=== PATIENT | male | born 2000 | race Caucasian/White ===

== ENCOUNTER 2021-02-25 07:37 | Inpatient (IN) ==
[2021-02-25 08:02] LABS: Basophils # (auto) 0.02 K/uL (0-0.2); Basophils % (auto) 0.2 %; Eosinophils % (auto) 1.8 %; Hematocrit (blood only) 42.9 % (42-52); Hemoglobin 14.9 g/dL (14.0-18.0); Immature Granulocytes # (auto) 0.02 K/uL (0.00-0.02); Immature Granulocytes % (auto) 0.2 %; Lymphocytes # (auto) 2.22 K/uL (1.2-3.4); Lymphocytes % (auto) 19.8 %; Mean Corpuscular Hemoglobin 31.6 pg (25-34); Mean Corpuscular Hgb Conc 34.7 g/dL (32-36); Mean Corpuscular Volume 91.1 fL (80-100); Mean Platelet Volume 9.9 fL (7.4-10.4); Monocytes # (auto) 1.14 K/uL (0.11-0.59); Monocytes % (auto) 10.2 %; Neutrophils # (auto) 7.63 K/uL (1.4-6.5); Neutrophils % (auto) 67.8 %; Platelet Count 289 K/uL (130-400); RDW Coefficient of Variation 12.5 % (11.5-14.5); RDW Standard Deviation 41.9 fL (36.4-46.3); Red Blood Count 4.71 M/uL (4.7-6.1); White Blood Count 11.23 K/uL (4.8-10.8)
[2021-02-25 08:22] LABS: Partial Thromboplastin Time 26.4 Seconds (21.0-31.0); Prothrombin Time 10.3 Seconds (9.0-12.0)
[2021-02-25 08:26] LABS: Alanine Aminotransferase 35 U/L (12-78); Albumin Level 3.3 gm/dl (3.4-5.0); Aspartate Aminotransferase 106 U/L (15-37); BUN Creatinine Ratio 10.1 (10-20); Blood Urea Nitrogen 9 mg/dl (7-18); C Reactive Protein 3.36 mg/dl (0-0.29); Calcium 9.1 mg/dl (8.5-10.1); Carbon Dioxide 24 mmol/L (21-32); Chloride 106 mmol/L (98-107); Est GFR (African American) 136.5 ml/min; Est GFR (Non-African American) 117.8 ml/min; Glucose 106 mg/dl (70-99); Lipase 99 U/L (73-393); Potassium 3.8 mmol/L (3.5-5.1); Sodium 139 mmol/L (136-145)
--- NOTE | 2021-02-25 08:44 | XRay Report ---
XR chest 1V portable HISTORY: Atypical Chest Pain COMPARISON: None. FINDINGS: The lungs are clear. Cardiac silhouette is normal in size. No pleural effusions. No pneumot horax. IMPRESSION: No acute process. ACT 112: Negative or not required by law. Electronically signed by: Lupillo Beasley M.D. 02/25/2021 8:43 AM
--- NOTE | 2021-02-25 08:55 | Electrocardiogram Report ---
Test Reason : Blood Pressure : / mmHG Vent. Rate : 057 BPM Atrial Rate : 057 BPM P-R Int : 128 ms QRS Dur : 090 ms QT Int : 378 ms P-R-T Axes : 006 058 063 degrees QTc Int : 367 ms Sinus bradycardia Repolarization variant vs. pericarditis, clinical correlation necessary Abnormal ECG No previous ECGs available Confirmed by Scar Gorman [id number] on 02/25/2021 8:54:49 AM Referred By: REFERRED SELF Confirmed By:Scar Gorman
[2021-02-25 08:56] LABS: Albumin Globulin Ratio 0.8 (0.9-2); Alkaline Phosphatase 68 U/L (45-117); Bilirubin,Total 0.6 mg/dl (0.2-1); Creatine Kinase 693 U/L (39-308); Creatine Kinase MB 44.6 ng/ml (0.5-3.6); Globulin 4.3 gm/dl (2.5-4.0); Total Protein 7.6 gm/dl (6.4-8.2)
[2021-02-25 08:57] LABS: Procalcitonin < 0.05 ng/ml (0-0.5)
--- NOTE | 2021-02-25 08:58 | Emergency Department Note ---
Impression & Plan Myocarditis, Chest pain, Pericarditis, Abnormal EKG ED Provider Note NAME: DAYANA SU AGE: 20 SEX: M : 2000 ARRIVES VIA: Ambulance INFORMANT: Patient, ED PROVIDER(S): Chavo Meraz DO CHIEF COMPLAINT: Chest pain HPI: The patient is a 20-year-old male who presented to the emergency department for an evaluation of chest pain. The patient describes anterior substernal chest pain which began approximately 2 days ago. He states the pain is intermittent. He does notice the pain mostly at night especially when he is lying flat. He denies having any fever. He denies having any cough or difficulty breathing. He states he did have a viral illness a few weeks ago but he just had body aches. He was never seen for that and had no specific diagnosis. He has never had similar symptoms in the past. Has been trying [id number] medication with only minimal relief. The patient called 911 this morning because his pain was significantly worsened. The patient is vaccinated against COVID-19. He received the [place] vaccination prior to starting at [facility] for the fall session. ROS: See above HPI for pertinent positives & negatives. A total of 10 systems reviewed and were otherwise negative. PAST MEDICAL HISTORY: See Below PAST SURGICAL HISTORY: See Below FAMILY HISTORY: See Below SOCIAL HISTORY: See Below HOME MEDICATIONS: See Below ALLERGIES: See Below VITALS: See Below PHYSICAL EXAMINATION: GENERAL: Patient is awake alert in no acute distress patient is resting c omfortably and showing no signs of anxiety EYES: The conjunctivae are clear. The pupils are round and reactive. EARS, NOSE, MOUTH AND THROAT: The nose is without any evidence of any deformity. NECK: The neck is nontender and supple. RESPIRATORY: Normal respiratory effort is noted there is no evidence of wheezing rhonchi or rales CARDIOVASCULAR: Regular rate and rhythm noted there no murmurs rubs or gallops normal S1 normal S2. GASTROINTESTINAL: The abdomen is soft. Abdomen is nontender. MUSCULOSKELETAL/EXTREMITIES: There is no evidence of gross deformity full range of motion is noted in the hips and shoulders. SKIN: There is no obvious evidence of any rash. There are no petechiae, pallor or cyanosis noted. NEUROLOGIC: Patient is awake alert and oriented x3 MEDICAL DECISION MAKING: The patient is a 20-year-old male who presented to the emergency department for an evaluation of chest pain. The patient's initial EKG showed abnormalities including ST segment elevation which could be consistent with a STEMI. The patient's history as well as physical exam appear to be more consistent with pericarditis. His pain was very positional in nature. I discussed the patient's laboratory and radiographic studies with him. He was found to have an elevation in his cardiac biomarkers. Likely this represents pericarditis with myocarditis. I discussed the patient's condition with the on-call [facility] form setter steel pan forms. They did recommend an echocardiogram. I discussed this case with the on-call [facility] hospitalist. They will evaluate the patient in the emergency department for further management and disposition. Triage Nursing notes reviewed. Prior medical records reviewed Vital Signs: reviewed and remarkable for bradycardia. Differential diagnosis: Cardiac ischemia, aortic dissection, pulmonary embolism, pneumothorax, pneumoni a, pericarditis, myocarditis, esophageal rupture, GERD, cholecystitis, pancreatitis, musculoskeletal, as well as other pathologies. ER treatment provided: See below Diagnostics interpreted by me: ECG: EKG was obtained in the emergency department. My interpretation is sinus bradycardia 57 bpm. There is no ectopy. Inferior and low lateral ST segment elevations were noted. There was some depression of the ST segments in V1 and V2. No previous tracing was available. Cardiac Monitoring: An order was placed for continuous cardiac monitoring. The monitor shows a rate of 56 bpm with sinus bradycardia. Laboratory studies: As stated above and show below. Imaging studies: See below Consultation(s): I discussed this case with Dr. Donaldson who is on-call for the [facility] hospitalist group. They will evaluate the patient in the emergency department. I discussed this case with Dr. Gorman who is on-call for [facility] cardiology. He does recommend an echocardiogram. He will follow along with the patient in consultation. Past Med/Surg History Medical History GERD (gastroesophageal reflux disease) Surgical History History of ankle surgery History of wisdom tooth extraction Family History Father Hypertension Social History Smoking Status: Current every day smoker Tobacco Type: E-cigarettes / Vaping Second Hand Exposure: No; Do You Dip or Chew Tobacco: No; Tobacco Cessation Education Requested by Patient: No Hx Alcohol Use: Yes Alcohol type: beer Alcohol Intake Frequency: 2-3 x/Week Hx Substance Use: No Preferred Language: [place] Islander Communication Ability: Effective Line Cook Required: No Beliefs That Will Affect Care: None Current Living Situation: Other Current Living Situation Comment: Apartment with 2 roommates Other Information That Helps Us Care for You: No Feels Safe at Home: Yes Safety Concerns: Feels Safe At This Time Assistive Devices: None Allergies Allergies Allergy/AdvReac Type Severity Reaction Status Date / Time No Known Allergies Allergy Unverified 02/25/21 08:36 Home Meds Home Medications Medication Instructions Recorded Confirmed No Known Home Medications 02/25/21 02/25/21 Results & Data (ED) Vital Signs Vital Signs - 24 hr 02/25/21 09:00 02/25/21 09:52 02/25/21 10:00 Pulse Rate 62 91 H 77 Pulse Rate from SpO2 Sensor 55 L Respiratory Rate 17 18 16 Blood Pressure 128/69 Blood Pressure Mean 88 Pulse Oximetry 97 98 Home Medications Current Medication List: was personally reviewed by me Laboratory Data Attestation: I reviewed the patient's lab results. Result diagrams: 02/26/21 04:52 02/26/21 04:52 Lab Results 02/25/21 02/25/21 02/25/21 Range/Units 07:49 07:49 07:49 WBC 11.23 H (4.8-10.8) K/uL RBC 4.71 (4.7-6.1) M/uL Hgb 14.9 (14.0-18.0) g/dL Hct 42.9 (42-52) % MCV 91.1 (80-100) fL MCH 31.6 (25-34) pg MCHC 34.7 (32-36) g/dL RDW Std Deviation 41.9 (36.4-46.3) fL RDW Coeff of Marisol 12.5 (11.5-14.5) % Plt Count 289 (130-400) K/uL MPV 9.9 (7.4-10.4) fL Immature Gran % (Auto) 0.2 % Neut % (Auto) 67.8 % Lymph % (Auto) 19.8 % Hancock % (Auto) 10.2 % Eos % (Auto) 1.8 % Baso % (Auto) 0.2 % Neut # (Auto) 7.63 H (1.4-6.5) K/uL Lymph # (Auto) 2.22 (1.2-3.4) K/uL Hancock # (Auto) 1.14 H (0.11-0.59) K/uL Eos # (Auto) 0.20 (0-0.5) K/uL Baso # (Auto) 0.02 (0-0.2) K/uL Immature Gran # (Auto) 0.02 (0.00-0.02) K/uL ESR 27 H (0-15) mm/hr PT 10.3 (9.0-12.0) Seconds INR 1.0 (0.9-1.1) APTT 26.4 (21.0-31.0) Seconds PTT Ratio 1.0 Sodium (136-145) mmol/L Potassium (3.5-5.1) mmol/L Chloride (98-107) mmol/L Carbon Dioxide (21-32) mmol/L Anion Gap (3-11) BUN (7-18) mg/dl Creatinine (0.6-1.4) mg/dl Est Cr Clr Drug Dosing Est GFR ( Amer) ml/min Est GFR (Non-Af Amer) ml/min BUN/Creatinine Ratio (10-20) Glucose (70-99) mg/dl Calcium (8.5-10.1) mg/dl Total Bilirubin (0.2-1) mg/dl AST (15-37) U/L ALT (12-78) U/L Alkaline Phosphatase (45-117) U/L Total Creatine Kinase (39-308) U/L CK-MB (CK-2) (0.5-3.6) ng/ml CK/CKMB % Calc (0-3.0) Troponin I (0-0.045) ng/ml C-Reactive Protein (0-0.29) mg/dl Total Protein (6.4-8.2) gm/dl Albumin (3.4-5.0) gm/dl Globulin (2.5-4.0) gm/dl Albumin/Globulin Ratio (0.9-2) Lipase (73-393) U/L Procalcitonin (0-0.5) ng/ml TSH (0.300-4.500) uIu/ml COVID-19 Eval Order SARS-CoV-2 (PCR) (Negative) Monoscreen (Negative) 02/25/21 02/25/21 02/25/21 Range/Units 07:49 07:49 07:49 WBC (4.8-10.8) K/uL RBC (4.7-6.1) M/uL Hgb (14.0-18.0) g/dL Hct (42-52) % MCV (80-100) fL MCH (25-34) pg MCHC (32-36) g/dL RDW Std Deviation (36.4-46.3) fL RDW Coeff of Marisol (11.5-14.5) % Plt Count (130-400) K/uL MPV (7.4-10.4) fL Immature Gran % (Auto) % Neut % (Auto) % Lymph % (Auto) % Hancock % (Auto) % Eos % (Auto) % Baso % (Auto) % Neut # (Auto) (1.4-6.5) K/uL Lymph # (Auto) (1.2-3.4) K/uL Hancock # (Auto) (0.11-0.59) K/uL Eos # (Auto) (0-0.5) K/uL Baso # (Auto) (0-0.2) K/uL Immature Gran # (Auto) (0.00-0.02) K/uL ESR (0-15) mm/hr PT (9.0-12.0) Seconds INR (0.9-1.1) APTT (21.0-31.0) Seconds PTT Ratio Sodium 139 (136-145) mmol/L Potassium 3.8 (3.5-5.1) mmol/L Chloride 106 (98-107) mmol/L Carbon Dioxide 24 (21-32) mmol/L Anion Gap 9.0 (3-11) BUN 9 (7-18) mg/dl Creatinine 0.93 (0.6-1.4) mg/dl Est Cr Clr Drug Dosing Not Reportable Est GFR ( Amer) 136.5 ml/min Est GFR (Non-Af Amer) 117.8 ml/min BUN/Creatinine Ratio 10.1 (10-20) Glucose 106 H (70-99) mg/dl Calcium 9.1 (8.5-10.1) mg/dl Total Bilirubin 0.6 (0.2-1) mg/dl AST 106 H (15-37) U/L ALT 35 (12-78) U/L Alkaline Phosphatase 68 (45-117) U/L Total Creatine Kinase 693 H (39-308) U/L CK-MB (CK-2) 44.6 H (0.5-3.6) ng/ml CK/CKMB % Calc 6.4 H (0-3.0) Troponin I 17.000 H* (0-0.045) ng/ml C-Reactive Protein 3.36 H (0-0.29) mg/dl Total Protein 7.6 (6.4-8.2) gm/dl Albumin 3.3 L (3.4-5.0) gm/dl Globulin 4.3 H (2.5-4.0) gm/dl Albumin/Globulin Ratio 0.8 L (0.9-2) Lipase 99 (73-393) U/L Procalcitonin < 0.05 (0-0.5) ng/ml TSH 1.310 (0.300-4.500) uIu/ml COVID-19 Eval Order SARS-CoV-2 (PCR) (Negative) Monoscreen Negative (Negative) 02/25/21 02/25/21 Range/Units 08:30 08:30 WBC (4.8-10.8) K/uL RBC (4.7-6.1) M/uL Hgb (14.0-18.0) g/dL Hct (42-52) % MCV (80-100) fL MCH (25-34) pg MCHC (32-36) g/dL RDW Std Deviation (36.4-46.3) fL RDW Coeff of Marisol (11.5-14.5) % Plt Count (130-400) K/uL MPV (7.4-10.4) fL Immature Gran % (Auto) % Neut % (Auto) % Lymph % (Auto) % Hancock % (Auto) % Eos % (Auto) % Baso % (Auto) % Neut # (Auto) (1.4-6.5) K/uL Lymph # (Auto) (1.2-3.4) K/uL Hancock # (Auto) (0.11-0.59) K/uL Eos # (Auto) (0-0.5) K/uL Baso # (Auto) (0-0.2) K/uL Immature Gran # (Auto) (0.00-0.02) K/uL ESR (0-15) mm/hr PT (9.0-12.0) Seconds INR (0.9-1.1) APTT (21.0-31.0) Seconds PTT Ratio Sodium (136-145) mmol/L Potassium (3.5-5.1) mmol/L Chloride (98-107) mmol/L Carbon Dioxide (21-32) mmol/L Anion Gap (3-11) BUN (7-18) mg/dl Creatinine (0.6-1.4) mg/dl Est Cr Clr Drug Dosing Est GFR ( Amer) ml/min Est GFR (Non-Af Amer) ml/min BUN/Creatinine Ratio (10-20) Glucose (70-99) mg/dl Calcium (8.5-10.1) mg/dl Total Bilirubin (0.2-1) mg/dl AST (15-37) U/L ALT (12-78) U/L Alkaline Phosphatase (45-117) U/L Total Creatine Kinase (39-308) U/L CK-MB (CK-2) (0.5-3.6) ng/ml CK/CKMB % Calc (0-3.0) Troponin I (0-0.045) ng/ml C-Reactive Protein (0-0.29) mg/dl Total Protein (6.4-8.2) gm/dl Albumin (3.4-5.0) gm/dl Globulin (2.5-4.0) gm/dl Albumin/Globulin Ratio (0.9-2) Lipase (73-393) U/L Procalcitonin (0-0.5) ng/ml TSH (0.300-4.500) uIu/ml COVID-19 Eval Order Covid19 at [facility] SARS-CoV-2 (PCR) NEGATIVE (Negative) Monoscreen (Negative) Administered Medications Acetaminophen (Acetaminophen 325 Mg Tab) 650 mg PO Q4H PRN PRN Reason: Pain or Fever Stop: 03/27/21 13:41 Last Admin: 02/25/21 14:23 Dose: 650 mg Documented by: [id number] Aspirin (Aspirin 325 Mg Ectab) 325 mg PO TID CHASE Stop: 03/27/21 17:59 Last Admin: 02/25/21 19:15 Dose: 325 mg Documented by: [id number] Colchicine (Colchicine 0.6 Mg Tab) 0.6 mg PO BID CHASE Stop: 03/27/21 20:59 Last Admin: 02/25/21 22:15 Dose: 0.6 mg Documented by: [id number] Lactated Ringer's (Lr) 1,000 mls @ 125 mls/hr IV .Q8H [facility] Stop: 03/27/21 13:41 Last Admin: 02/26/21 06:01 Dose: 125 mls/hr Documented by: [id number] Infusion: 02/26/21 06:01 Dose: 125 mls/hr Documented by: [id number] Admin: 02/25/21 22:15 Dose: 125 mls/hr Documented by: [id number] Infusion: 02/25/21 21:52 Dose: 125 mls/hr Documented by: [id number] Admin: 02/25/21 13:52 Dose: 125 mls/hr Documented by: [id number] Metoprolol Tartrate (Metoprolol Tartrate 25 Mg Tab) 12.5 mg PO BID [facility] Stop: 03/27/21 18:04 Last Admin: 02/25/21 19:15 Dose: 12.5 mg Documented by: [id number] Pantoprazole Sodium (Pantoprazole 40 Mg Tab) 40 mg PO BID [facility] Stop: 03/27/21 20:59 Last Admin: 02/25/21 22:15 Dose: 40 mg Documented by: [id number] Imaging Data Radiologist's Impression: Chest X-Ray 02/25/21 07:43 XR chest 1V portable HISTORY: Atypical Chest Pain COMPARISON: None. FINDINGS: The lungs are clear. Cardiac silhouette is normal in size. No pleural effusions. No pneumothorax. IMPRESSION: No acute process. ACT 112: Negative or not required by law. Electronically signed by: Lupillo Beasley M.D. 02/25/2021 8:43 AM Discharge Plan Visit Data Patient Disposition: Being Evaluated by Hospitalist Discharge Instructions Interventions: ED Discharge Assessment Last Done: 02/25/21 13:30 Discharge Problem: Myocarditis Qualifiers: Myocarditis type: unspecified Chronicity: acute Qualified Code(s): I40.9 - Acute myocarditis, unspecified Chest pain Qualifiers: Chest pain type: unspecified Qualified Code(s): R07.9 - Chest pain, unspecified Pericarditis Qualifiers: Pericarditis type: unspecified type Chronicity: acute Qualified Code(s): I30.9 - Acute pericarditis, unspecified
[2021-02-25 09:59] LABS: Monotest Negative (Negative)
--- NOTE | 2021-02-25 10:14 | History & Physical Report ---
Date of Service February 25, 2021 Assessment & Plan (1) Myocarditis: Plan: Presents with severe chest pain clinically consistent with pericarditis in the setting of recent viral illness about 2 weeks prior. No evidence of heart failure on examination Troponin was 17 on arrival, CK elevated in the 600s with elevated CK-MB, AST also elevated, with mild leukocytosis, Elevated ESR 27, as well as ECG changes consistent with pericarditis Bureau screen and Covid-19 test negative here He is at least 2 months out from his Covid vaccine, however so most likely not related to his current myocarditis -Admit to PCU for telemetry monitoring for arrhythmia -Check echocardiogram to check structure and function -Consult cardiology for further recommendations -IV Toradol as needed for pain for now, but will likely need to add on colchicine and p.o. NSAIDs for discharge -Check TSH -Daily ECG -Trend serial troponin -Follow CBC and CMP, magnesium in the morning, replace electrolytes as needed -Start gentle IV fluids for mild rhabdo (2) Abnormal EKG: Plan: As above secondary to myopericarditis (3) GERD (gastroesophageal reflux disease): Plan: Takes PPI as needed at home but has not needed in over a year (4) Elevated troponin: Plan: As above, secondary to myopericarditis (5) Elevated CK: Plan: Mildly elevated in the 600s, likely related to recent viral illness and myocarditis Start LR at 125 mL's per hour Follow CK in the morning (6) Transaminitis: Plan: AST mildly elevated 106, likely related to mild rhabdomyolysis and viral syndrome Start LR as above Follow LFTs in morning (7) Leukocytosis: Plan: Mild at 11, likely related to myocarditis Follow CBC Plan: DVT prophylaxis-SCDs Disposition-admit to PCU History of Present Illness Chief Complaint: Chest pain Primary Care Provider: [facility] This patient is a 20-year-old healthy 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 He reports the pain is an 8 out of 10 at worst and is currently a 2 out of 10 after he took ibuprofen this morning. The pain is worse when he lies flat and better when he sits up. He has had sweats the last 2 days as well. No documented fevers. He denies any shortness of breath. He feels an occasional palpitation in his chest, but denies presyncope, lightheadedness, or syncope. He has never had anything like this before. He reports about 2 weeks ago he did have a viral syndrome with diffuse body aches, some swollen lymph nodes in his neck, and possibly fever. He did not have any cough or cold symptoms at that time and he recovered after a couple of days. He had a Covid vaccine series in December 2020. In the ER, he was found to have a troponin of 17, a mild leukocytosis with WBC count of 11, and ESR elevated at 27, AST elevated at 106, CK elevated at 693, and a negative procalcitonin. His Covid-19 test and mono screen were both negative. His ECG was abnormal which showed sinus bradycardia with a rate of 57, subtle ST elevation in all leads except some ST depression in V1 and V2, no ectopy, with no previous ECG to compare to He will be admitted for further work-up for [place]-myocarditis. Allergies Allergy/AdvReac Type Severity Reaction Status Date / Time No Known Allergies Allergy Unverified 02/25/21 08:36 Home Medications Medication Instructions Recorded Confirmed Type No Known Home Medications 02/25/21 02/25/21 History Past Med/Surg History Medical History GERD (gastroesophageal reflux disease) Surgical History History of ankle surgery History of wisdom tooth extraction Family History Father Hypertension Social History Smoking Status: Current every day smoker Tobacco Type: E-cigarettes / Vaping Hx Alcohol Use: Yes Alcohol Intake Frequency: 2-3 x/Week Hx Substance Use: No Feels Safe at Home: Yes Review of Systems Review of Systems: All systems reviewed & are unremarkable except as noted in HPI & below no headaches or vision changes, no sore throat, no sinus congestion, no shortness of breath or cough, no abdominal pain, no nausea or vomiting, no changes in bowel or bladder habits, no rashes or joint pains Has chronic issues with cerumen impaction Physical Exam Constitutional: WD/WN, vitals as above Eyes: PERRL, conjunctivae normal, anicteric sclerae ENMT: external ear and nose normal, oropharynx normal Ears: + unable to visualize TM (Due to bilateral cerumen impaction) Neck: trachea midline, no thyromegaly Respiratory: normal respiratory effort, lungs clear to auscultation Cardiovascular: RRR, no murmur, no edema Chest (Breasts): Chest: normal inspection of chest Gastrointestinal (Abdomen): normal bowel sounds, soft, nontender, no hepatosplenomegaly Musculoskeletal: Extremities: extremities normal to inspection; no cyanosis and no clubbing Skin: no rashes, warm and dry Neurologic: moves all extremities and awake; no focal motor deficits Psychiatric: A+Ox3, euthymic affect Lymphatic: no lymphedema and no cervical lymphadenopathy Results & Data Results & Data ([facility]) Vital Signs (Past 12 Hours) Vital Signs Temp Pulse Pulse Resp BP BP Pulse Ox 02/25/21 09:52 91 H 18 128/69 98 02/25/21 09:00 62 17 97 02/25/21 08:00 56 L 14 126/74 100 02/25/21 07:51 62 19 100 02/25/21 07:40 37.3 C 57 L 25 H 137/80 98 02/25/21 07:33 98 02/25/21 07:30 37.3 C 57 L 25 H 137/80 98 Laboratory Results 02/25/21 02/25/21 02/25/21 Range/Units 08:30 08:30 07:49 WBC (4.8-10.8) K/uL RBC (4.7-6.1) M/uL Hgb (14.0-18.0) g/dL Hct (42-52) % MCV (80-100) fL MCH (25-34) pg MCHC (32-36) g/dL RDW Std Deviation (36.4-46.3) fL RDW Coeff of Marisol (11.5-14.5) % Plt Count (130-400) K/uL MPV (7.4-10.4) fL Immature Gran % (Auto) % Neut % (Auto) % Lymph % (Auto) % Bureau % (Auto) % Eos % (Auto) % Baso % (Auto) % Neut # (Auto) (1.4-6.5) K/uL Lymph # (Auto) (1.2-3.4) K/uL Bureau # (Auto) (0.11-0.59) K/uL Eos # (Auto) (0-0.5) K/uL Baso # (Auto) (0-0.2) K/uL Immature Gran # (Auto) (0.00-0.02) K/uL ESR (0-15) mm/hr PT (9.0-12.0) Seconds INR (0.9-1.1) APTT (21.0-31.0) Seconds PTT Ratio Sodium (136-145) mmol/L Potassium (3.5-5.1) mmol/L Chloride (98-107) mmol/L Carbon Dioxide (21-32) mmol/L Anion Gap (3-11) BUN (7-18) mg/dl Creatinine (0.6-1.4) mg/dl Est Cr Clr Drug Dosing Est GFR ( Amer) ml/min Est GFR (Non-Af Amer) ml/min BUN/Creatinine Ratio (10-20) Glucose (70-99) mg/dl Calcium (8.5-10.1) mg/dl Total Bilirubin (0.2-1) mg/dl AST (15-37) U/L ALT (12-78) U/L Alkaline Phosphatase (45-117) U/L Total Creatine Kinase (39-308) U/L CK-MB (CK-2) (0.5-3.6) ng/ml CK/CKMB % Calc (0-3.0) Troponin I (0-0.045) ng/ml C-Reactive Protein (0-0.29) mg/dl Total Protein (6.4-8.2) gm/dl Albumin (3.4-5.0) gm/dl Globulin (2.5-4.0) gm/dl Albumin/Globulin Ratio (0.9-2) Lipase (73-393) U/L Procalcitonin < 0.05 (0-0.5) ng/ml COVID-19 Eval Order Covid19 at [facility] SARS-CoV-2 (PCR) NEGATIVE (Negative) Monoscreen Negative (Negative) 02/25/21 02/25/21 02/25/21 Range/Units 07:49 07:49 07:49 WBC (4.8-10.8) K/uL RBC (4.7-6.1) M/uL Hgb (14.0-18.0) g/dL Hct (42-52) % MCV (80-100) fL MCH (25-34) pg MCHC (32-36) g/dL RDW Std Deviation (36.4-46.3) fL RDW Coeff of Marisol (11.5-14.5) % Plt Count (130-400) K/uL MPV (7.4-10.4) fL Immature Gran % (Auto) % Neut % (Auto) % Lymph % (Auto) % Bureau % (Auto) % Eos % (Auto) % Baso % (Auto) % Neut # (Auto) (1.4-6.5) K/uL Lymph # (Auto) (1.2-3.4) K/uL Bureau # (Auto) (0.11-0.59) K/uL Eos # (Auto) (0-0.5) K/uL Baso # (Auto) (0-0.2) K/uL Immature Gran # (Auto) (0.00-0.02) K/uL ESR 27 H (0-15) mm/hr PT 10.3 (9.0-12.0) Seconds INR 1.0 (0.9-1.1) APTT 26.4 (21.0-31.0) Seconds PTT Ratio 1.0 Sodium 139 (136-145) mmol/L Potassium 3.8 (3.5-5.1) mmol/L Chloride 106 (98-107) mmol/L Carbon Dioxide 24 (21-32) mmol/L Anion Gap 9.0 (3-11) BUN 9 (7-18) mg/dl Creatinine 0.93 (0.6-1.4) mg/dl Est Cr Clr Drug Dosing Not Reportable Est GFR ( Amer) 136.5 ml/min Est GFR (Non-Af Amer) 117.8 ml/min BUN/Creatinine Ratio 10.1 (10-20) Glucose 106 H (70-99) mg/dl Calcium 9.1 (8.5-10.1) mg/dl Total Bilirubin 0.6 (0.2-1) mg/dl AST 106 H (15-37) U/L ALT 35 (12-78) U/L Alkaline Phosphatase 68 (45-117) U/L Total Creatine Kinase 693 H (39-308) U/L CK-MB (CK-2) 44.6 H (0.5-3.6) ng/ml CK/CKMB % Calc 6.4 H (0-3.0) Troponin I 17.000 H* (0-0.045) ng/ml C-Reactive Protein 3.36 H (0-0.29) mg/dl Total Protein 7.6 (6.4-8.2) gm/dl Albumin 3.3 L (3.4-5.0) gm/dl Globulin 4.3 H (2.5-4.0) gm/dl Albumin/Globulin Ratio 0.8 L (0.9-2) Lipase 99 (73-393) U/L Procalcitonin (0-0.5) ng/ml COVID-19 Eval Order SARS-CoV-2 (PCR) (Negative) Monoscreen (Negative) 02/25/21 Range/Units 07:49 WBC 11.23 H (4.8-10.8) K/uL RBC 4.71 (4.7-6.1) M/uL Hgb 14.9 (14.0-18.0) g/dL Hct 42.9 (42-52) % MCV 91.1 (80-100) fL MCH 31.6 (25-34) pg MCHC 34.7 (32-36) g/dL RDW Std Deviation 41.9 (36.4-46.3) fL RDW Coeff of Marisol 12.5 (11.5-14.5) % Plt Count 289 (130-400) K/uL MPV 9.9 (7.4-10.4) fL Immature Gran % (Auto) 0.2 % Neut % (Auto) 67.8 % Lymph % (Auto) 19.8 % Bureau % (Auto) 10.2 % Eos % (Auto) 1.8 % Baso % (Auto) 0.2 % Neut # (Auto) 7.63 H (1.4-6.5) K/uL Lymph # (Auto) 2.22 (1.2-3.4) K/uL Bureau # (Auto) 1.14 H (0.11-0.59) K/uL Eos # (Auto) 0.20 (0-0.5) K/uL Baso # (Auto) 0.02 (0-0.2) K/uL Immature Gran # (Auto) 0.02 (0.00-0.02) K/uL ESR (0-15) mm/hr PT (9.0-12.0) Seconds INR (0.9-1.1) APTT (21.0-31.0) Seconds PTT Ratio Sodium (136-145) mmol/L Potassium (3.5-5.1) mmol/L Chloride (98-107) mmol/L Carbon Dioxide (21-32) mmol/L Anion Gap (3-11) BUN (7-18) mg/dl Creatinine (0.6-1.4) mg/dl Est Cr Clr Drug Dosing Est GFR ( Amer) ml/min Est GFR (Non-Af Amer) ml/min BUN/Creatinine Ratio (10-20) Glucose (70-99) mg/dl Calcium (8.5-10.1) mg/dl Total Bilirubin (0.2-1) mg/dl AST (15-37) U/L ALT (12-78) U/L Alkaline Phosphatase (45-117) U/L Total Creatine Kinase (39-308) U/L CK-MB (CK-2) (0.5-3.6) ng/ml CK/CKMB % Calc (0-3.0) Troponin I (0-0.045) ng/ml C-Reactive Protein (0-0.29) mg/dl Total Protein (6.4-8.2) gm/dl Albumin (3.4-5.0) gm/dl Globulin (2.5-4.0) gm/dl Albumin/Globulin Ratio (0.9-2) Lipase (73-393) U/L Procalcitonin (0-0.5) ng/ml COVID-19 Eval Order SARS-CoV-2 (PCR) (Negative) Monoscreen (Negative) Diagnostic Findings Chest X-Ray 02/25/21 07:43 XR chest 1V portable HISTORY: Atypical Chest Pain COMPARISON: None. FINDINGS: The lungs are clear. Cardiac silhouette is normal in size. No pleural effusions. No pneumothorax. IMPRESSION: No acute process. ACT 112: Negative or not required by law. Electronically signed by: Lupillo Beasley M.D. 02/25/2021 8:43 AM Code Status & VTE Plan Code Status Full code VTE Prophylaxis Plan VTE Prophylaxis will be ordered: Yes PG Care Time/CCT Total # of Minutes Spent Total Time Spent with Patient: Total time spent is greater than 50% in coordination of care (as documented) at patient's floor/unit and/or counseling patient: Coding Level of Care Code 55991 Initial Inpt Care Lvl 3 Diagnoses GERD (gastroesophageal reflux disease) K21.9 Myocarditis I40.9 Chronicity: acute Myocarditis type: unspecified Abnormal EKG R94.31 Elevated troponin R77.8 Elevated CK R74.8 Transaminitis R74.01 Leukocytosis D72.829 (1) Myocarditis Chronicity: acute Myocarditis type: unspecified Qualified Code(s): I40.9 - Acute myocarditis, unspecified
--- NOTE | 2021-02-25 11:56 | Communication Note ---
Date of Service: February 25, 2021 I personally examined and provided care to this patient under the supervision of Dr. Meraz. Resident Activity Tracking Resident Involvement: Resident Care Provided Care Provided: Pediatric Care ED
[2021-02-25] MEDS ORDERED: ONDANSETRON INJ 2 MG/ML 2 ML VIAL IV PRN (13:42)
[2021-02-25] MEDS ORDERED: MoRPHine SULFATE 2 MG/ML CARP IV PRN (13:42)
[2021-02-25] MEDS ORDERED: ACETAMINOPHEN 325 MG TAB PO PRN (13:42)
[2021-02-25] MEDS ORDERED: KETOROLAC TROMETHAMINE 15 MG/ML VIAL IV PRN (13:42)
[2021-02-25] MEDS: LACTATED RINGER'S 1,000 ML IV SCH ×2 (13:52→22:15)
--- NOTE | 2021-02-25 14:00 | XCELERA ---
[id number]
--- NOTE | 2021-02-25 17:30 | Cardiology Consultation ---
Date of Consultation February 25, 2021 Assessment & Plan (1) Acute myopericarditis: 20-year-old healthy man presents with positional chest pain 2 weeks after a viral syndrome. Along the spectrum from pericarditis to myopericarditis to myocarditis, his initial clinical scenario is most consistent with acute myopericarditis. His echocardiogram shows low normal systolic function, which in an athletic individual is an expected finding. However, should subsequent echocardiograms showed a decline in systolic function, the possibility of a primary myocarditis would rise. At this point, would treat the pericarditis component with colchicine 0.6 mg BID for 3 months. Would avoid NSAIDs at this point given possibility of myocarditis (a theoretical concern). Would start aspirin 325 mg 3 times daily, could increase to 650 mg 3 times daily if his chest pain returns. Check limited follow-up echocardiogram in the morning to reassess LV function. (2) PVCs (premature ventricular contractions): Initiate low-dose beta-clara (metoprolol 12.5 mg twice daily) for ventricular irritability with PVCs on monitor. History of Present Illness Reason for Consultation: Myopericarditis Requesting Physician: Adali Donaldson MD Attending Physician: Adali Donaldson MD History of Present Illness 20-year-old healthy man who noted abrupt onset of positional chest pain yesterday morning, more severe this morning prompting him to call an ambulance, initial evaluation suggest mild pericarditis. Patient received Covid vaccine December 2020. He noted a viral syndrome 2 weeks ago with myalgias and lymphadenopathy as well as possible fever, no cough or cold symptoms. He felt well since that time and regularly works out in the gym. As noted, he had moderate intensity positional chest pain yesterday, worse when lying down. This morning the pain was 8/10 intensity prompting ER evaluation. At the time of my evaluation later in the day, he was no longer experiencing any chest discomfort sitting up or lying down. He has noted subjective palpitations which are bothersome, nonsustained and no presyncope or syncope. At baseline, he is physically active and lifts weights regularly and does some treadmill aerobic exercise as well. No significant medical problems. Aside from occasional palpitations, no somatic complaints at the time of my evaluation. Allergies Allergy/AdvReac Type Severity Reaction Status Date / Time No Known Allergies Allergy Unverified 02/25/21 08:36 Home Medications Medication Instructions Recorded Confirmed Type No Known Home Medications 02/25/21 02/25/21 History Patient History Medical History GERD (gastroesophageal reflux disease) Surgical History History of ankle surgery History of wisdom tooth extraction Family History Father Hypertension Social History Smoking Status: Current every day smoker Tobacco Type: E-cigarettes / Vaping Second Hand Exposure: No; Do You Dip or Chew Tobacco: No; Tobacco Cessation Education Requested by Patient: No Hx Alcohol Use: Yes Alcohol type: beer Alcohol Intake Frequency: 2-3 x/Week Hx Substance Use: No Preferred Language: Indonesian Communication Ability: Effective Quality Control Tester Required: No Beliefs That Will Affect Care: None Current Living Situation: Other Current Living Situation Comment: Apartment with 2 roommates Other Information That Helps Us Care for You: No Feels Safe at Home: Yes Safety Concerns: Feels Safe At This Time Assistive Devices: None Physical Exam Physical Exam: Athletic habitus in adult white male in no distress. Normotensive. Pulse 64 bpm and regular with rare ectopy. Skin: no rash, ecchymoses or generalized lesions. HEENT: unremarkable. Neck: no JVD or carotid bruits. Lungs: clear bilaterally Cardiac: regular rhythm, no murmur or gallop. No rub. Abdomen: benign. Extremities: no edema, pulses intact. Neurologic: normal affect and conversation, nonfocal. Results & Data ([facility]) Laboratory Results WBC 11.23, hemoglobin normal, platelet count normal. Coagulation studies normal. Normal electrolytes, BUN 9, creatinine 0.93. AST elevated at 106, ALT normal at 35. Troponin 17 rising to 23. CK 693 with positive MB fraction. COVID-19 and Monospot negative. TSH normal. Procalcitonin undetectable. Diagnostic Findings Chest x-ray unremarkable. ECG showed sinus rhythm at [address] elevations consistent with pericarditis. No prior ECG. Echocardiogram showed EF 50 to 55% with borderline global hypokinesis, normal right ventricular size and function with normal right ventricular systolic pressure. No pericardial effusion. Telemetry showed PVCs correlating with his palpitations, infrequent and noncomplex. PG Care Time/CCT Total # of Minutes Spent Total Time Spent with Patient: Total time spent is greater than 50% in coordination of care (as documented) at patient's floor/unit and/or counseling patient: Coding Level of Care Code 82971 Inpt Consult Level 4 Diagnoses Acute myopericarditis I30.9 PVCs (premature ventricular contractions) I49.3
[2021-02-25] MEDS: ASPIRIN 325 MG ECTAB PO SCH (19:15)
[2021-02-25] MEDS: METOPROLOL TARTRATE 25 MG TAB PO SCH (19:15)
[2021-02-25 21:29] LABS: Lyme Ab IgG w/WB Rflx Negative (Negative); Lyme Ab IgM w/WB Rflx Negative (Negative)
[2021-02-25] MEDS: COLCHICINE 0.6 MG TAB PO SCH (22:15)
[2021-02-25] MEDS: PANTOprazole 40 MG TAB PO SCH (22:15)
[2021-02-26 05:14] LABS: Basophils # (auto) 0.02 K/uL (0-0.2); Basophils % (auto) 0.2 %; Eosinophils # (auto) 0.18 K/uL (0-0.5); Eosinophils % (auto) 1.5 %; Hematocrit (blood only) 40.2 % (42-52); Hemoglobin 14.1 g/dL (14.0-18.0); Immature Granulocytes # (auto) 0.03 K/uL (0.00-0.02); Immature Granulocytes % (auto) 0.3 %; Lymphocytes # (auto) 2.86 K/uL (1.2-3.4); Lymphocytes % (auto) 24.1 %; Mean Corpuscular Hgb Conc 35.1 g/dL (32-36); Mean Corpuscular Volume 91.4 fL (80-100); Mean Platelet Volume 9.9 fL (7.4-10.4); Monocytes # (auto) 1.24 K/uL (0.11-0.59); Monocytes % (auto) 10.5 %; Neutrophils # (auto) 7.52 K/uL (1.4-6.5); Neutrophils % (auto) 63.4 %; Platelet Count 273 K/uL (130-400); RDW Coefficient of Variation 12.3 % (11.5-14.5); RDW Standard Deviation 41.3 fL (36.4-46.3); White Blood Count 11.85 K/uL (4.8-10.8)
[2021-02-26 05:44] LABS: Albumin Level 2.9 gm/dl (3.4-5.0); BUN Creatinine Ratio 9.6 (10-20); Calcium 9.4 mg/dl (8.5-10.1); Creatinine Clr Calc Pharmacy 151.4 ml/min; Est GFR (African American) 136.5 ml/min; Est GFR (Non-African American) 117.8 ml/min
[2021-02-26 05:47] LABS: Albumin Globulin Ratio 0.7 (0.9-2); Bilirubin,Total 0.5 mg/dl (0.2-1); Total Protein 6.9 gm/dl (6.4-8.2)
[2021-02-26] MEDS: LACTATED RINGER'S 1,000 ML IV SCH (06:01)
--- NOTE | 2021-02-26 07:44 | XCELERA ---
[id number]
[2021-02-26] MEDS: COLCHICINE 0.6 MG TAB PO SCH (08:30)
[2021-02-26] MEDS: ASPIRIN 325 MG ECTAB PO SCH ×2 (08:31→14:18)
[2021-02-26] MEDS: PANTOprazole 40 MG TAB PO SCH (08:31)
[2021-02-26] MEDS: METOPROLOL TARTRATE 25 MG TAB PO SCH (08:47)
--- NOTE | 2021-02-26 08:58 | Electrocardiogram Report ---
Test Reason : Blood Pressure : / mmHG Vent. Rate : 066 BPM Atrial Rate : 066 BPM P-R Int : 174 ms QRS Dur : 092 ms QT Int : 406 ms P-R-T Axes : 067 067 080 degrees QTc Int : 425 ms Normal sinus rhythm Acute pericarditis Abnormal ECG When compared with ECG of 25-FEB-2021 21:45, No significant change was found Confirmed by Scar Gorman ([id number]) on 02/26/2021 8:58:25 AM Referred By: REFERRED SELF Confirmed By:Scar Gorman
--- NOTE | 2021-02-26 08:58 | Electrocardiogram Report ---
Test Reason : Blood Pressure : / mmHG Vent. Rate : 074 BPM Atrial Rate : 074 BPM P-R Int : 158 ms QRS Dur : 088 ms QT Int : 374 ms P-R-T Axes : 066 065 078 degrees QTc Int : 415 ms Normal sinus rhythm Acute pericarditis Normal ECG When compared with ECG of 25-FEB-2021 21:00, No significant change was found Confirmed by Scar Gorman ([id number]) on 02/26/2021 8:57:58 AM Referred By: REFERRED SELF Confirmed By:Scar Gorman
--- NOTE | 2021-02-26 08:59 | Electrocardiogram Report ---
Test Reason : Blood Pressure : / mmHG Vent. Rate : 062 BPM Atrial Rate : 062 BPM P-R Int : 176 ms QRS Dur : 090 ms QT Int : 410 ms P-R-T Axes : 071 061 075 degrees QTc Int : 416 ms Normal sinus rhythm Acute pericarditis Abnormal ECG When compared with ECG of 26-FEB-2021 05:54, No significant change was found Confirmed by Scar Gorman ([id number]) on 02/26/2021 8:58:46 AM Referred By: REFERRED SELF Confirmed By:Scar Gorman
--- NOTE | 2021-02-26 09:00 | Electrocardiogram Report ---
Test Reason : Blood Pressure : / mmHG Vent. Rate : 064 BPM Atrial Rate : 064 BPM P-R Int : 162 ms QRS Dur : 090 ms QT Int : 384 ms P-R-T Axes : 074 065 077 degrees QTc Int : 396 ms Normal sinus rhythm Acute pericarditis Normal ECG When compared with ECG of 25-FEB-2021 07:40, No significant change was found Confirmed by Scar Gorman ([id number]) on 02/26/2021 8:59:58 AM Referred By: REFERRED SELF Confirmed By:Scar Gorman
[2021-02-26 13:01] LABS: Troponin I 20.8 ng/ml (0-0.045)
--- NOTE | 2021-02-26 13:14 | Cardiology Progress Note ---
Date of Service February 26, 2021 Assessment & Plan (1) Acute myopericarditis: Plan: Inflammatory myopericarditis process seems to have peaked (enzymes improving) and the patient is asymptomatic. Discharge on: Colchicine 0.6 mg BID for 3 months. Aspirin 325 mg 3 times daily with food (can increase to 650 mg 3 times daily if recurrent chest pain). Continue aspirin for 48 hours, then decrease to twice a day for 2 days, then once a day for 2 days, with increase in dosing if recurrent chest pain. Metoprolol 12.5 mg twice daily. Strict avoidance of heavy exertion. Light activity only, keep heart rate less than 100 bpm. Cardiology follow-up in 3 to 4 weeks to reassess. (2) PVCs (premature ventricular contractions): Plan: Resolved. Continue beta-clara. Admission and Anticipated Discharge Date Admission Date: February 25, 2021 Subjective Developed recurrent chest discomfort last evening, after receiving aspirin and colchicine this resolved completely and has not recurred today. He noted palpitations yesterday, but none today. Troponin increased mildly but is now declining. Echocardiogram was unchanged overnight. Telemetry shows sinus rhythm without ectopy currently. He was comfortable with no complaint at the time of my evaluation. Physical Exam Physical Exam: Athletic habitus in adult white male in no distress. Normotensive. Pulse 70 bpm and regular. Skin: no rash, ecchymoses or generalized lesions. HEENT: unremarkable. Neck: no JVD or carotid bruits. Lungs: clear bilaterally Cardiac: regular rhythm, no murmur or gallop. No rub. Abdomen: benign. Extremities: no edema, pulses intact. Neurologic: normal affect and conversation, nonfocal. Results & Data ([facility]) Vital Signs (Past 12 Hours) Vital Signs Temp Pulse Resp BP Pulse Ox 02/26/21 12:35 71 18 119/66 99 02/26/21 07:32 98.6 F 76 18 117/64 97 02/26/21 02:57 98.2 F 78 20 106/62 98 Laboratory Results Troponins 17 - 23 - 21- 20.8 CK 693 - 027 - 849 Diagnostic Findings Follow-up echocardiogram showed EF 50 to 55% with no regional wall motion normalities. No change compared with yesterday. PG Care Time/CCT Total # of Minutes Spent Total Time Spent with Patient: Total time spent is greater than 50% in coordination of care (as documented) at patient's floor/unit and/or counseling patient: Coding Level of Care Code 08872 Subseq Hosp Care Lvl 3 Diagnoses Acute myopericarditis I30.9 PVCs (premature ventricular contractions) I49.3
--- NOTE | 2021-02-26 13:18 | Discharge Summary ---
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 He reports the pain is an 8 out of 10 at worst and is currently a 2 out of 10 after he took ibuprofen this morning. The pain is worse when he lies flat and better when he sits up. He has had sweats the last 2 days as well. No documented fevers. He denies any shortness of breath. He feels an occasional palpitation in his chest, but denies presyncope, lightheadedness, or syncope. He has never had anything like this before. He reports about 2 weeks ago he did have a viral syndrome with diffuse body aches, some swollen lymph nodes in his neck, and possibly fever. He did not have any cough or cold symptoms at that time and he recovered after a couple of days. He had a Covid vaccine series in December 2020. In the ER, he was found to have a troponin of 17, a mild leukocytosis with WBC count of 11, and ESR elevated at 27, AST elevated at 106, CK elevated at 693, and a negative procalcitonin. His Covid-19 test and mono screen were both negative. His ECG was abnormal which showed sinus bradycardia with a rate of 57, subtle ST elevation in all leads except some ST depression in V1 and V2, no ectopy, with no previous ECG to compare to He will be admitted for further work-up for [place]-myocarditis. Principal Diagnosis Acute myopericarditis Discharge Exam Constitutional WD/WN, vitals as above Eyes PERRL, conjunctivae normal, anicteric sclerae ENMT external ear and nose normal, oropharynx normal Neck trachea midline, no thyromegaly Respiratory normal respiratory effort, lungs clear to auscultation Cardiovascular RRR, no murmur, no edema Chest (Breasts) Chest: normal inspection of chest Gastrointestinal (Abdomen) normal bowel sounds, soft, nontender, no hepatosplenomegaly Musculoskeletal Extremities: extremities normal to inspection; no cyanosis and no clubbing Skin no rashes, warm and dry Neurologic moves all extremities and awake; no focal motor deficits Psychiatric A+Ox3, euthymic affect Lymphatic no lymphedema and no cervical lymphadenopathy Discharge Data Allergies Allergy/AdvReac Type Severity Reaction Status Date / Time No Known Allergies Allergy Unverified 02/25/21 08:36 Consultations 02/25/21 09:05 Consult Cardiology Stat 02/25/21 09:23 Consult Cardiology Stat ED Decision to Admit Stat Ordered Studies Chest X-Ray 02/25/21 07:43 XR chest 1V portable HISTORY: Atypical Chest Pain COMPARISON: None. FINDINGS: The lungs are clear. Cardiac silhouette is normal in size. No pleural effusions. No pneumothorax. IMPRESSION: No acute process. ACT 112: Negative or not required by law. Electronically signed by: Lupillo Beasley M.D. 02/25/2021 8:43 AM Hospital Course (1) Myocarditis: Presents with severe chest pain clinically consistent with myopericarditis in the setting of recent viral illness about 2 weeks prior. No evidence of heart failure on examination Troponin was 17 on arrival and peaked at 23 CK elevated in the 600s with elevated CK-MB, AST also elevated, with mild leukocytosis, Elevated ESR 27, as well as ECG changes consistent with pericarditis [place] screen and Covid-19 test negative here Lyme titer negative He is at least 2 months out from his Covid vaccine, however, so most likely not related to his current myocarditis -He was admitted to PCU for telemetry monitoring for arrhythmia-he had only sinus rhythm on the monitor and his heart rate did not go above the 90s with ambulating the words prior to discharge -Echocardiogram initially showed low normal EF at 50-55% with borderline global hypokinesis of left ventricle, no pericardial effusion A repeat limited echocardiogram the next day was unchanged -Consult cardiology appreciated -He was treated with aspirin 325 mg p.o. 3 times daily and colchicine 0.6 mg p.o. twice daily and his pain was dramatically improved within 24 hours The aspirin is to be tapered down over the next several days and then use as needed for pain Colchicine is to be continued for 3 months Follow-up with cardiology as an outpatient in several weeks Stable for discharge to home (2) Abnormal EKG: As above secondary to myopericarditis (3) GERD (gastroesophageal reflux disease): Takes PPI as needed at home but has not needed in over a year Recommended taking PPI daily for the next 2 weeks given high-dose aspirin use (4) Elevated troponin: As above, secondary to myopericarditis (5) Elevated CK: Mildly elevated in the 600s, likely related to recent viral illness and myocarditis Was given LR at 125 mL's per hour Repeat CK the next day was down to 634 (6) Transaminitis: AST mildly elevated 106, likely related to mild rhabdomyolysis and viral syndrome Was given IV fluids and AST remained mildly elevated at 144 on discharge Follow-up as an outpatient (7) Leukocytosis: Mild at 11, likely related to myocarditis, stable on the day of discharge Follow CBC as an outpatient DVT prophylaxis-SCDs Disposition-admit to PCU Total Time Total Time Spent Total Time Spent (In Minutes): 45 minutes Total Time Includes: Examination of the Patient, Discharge Planning, Medication Reconciliation and Communication With Other Providers (Cardiology) Discharge Plan Discharge Items Patient Disposition: Home - Self-Care Reason For Visit: VAN-PERICARDITIS,CHEST PAIN Discharge Diagnosis: Acute van-pericarditis Condition on Discharge: Fair Activity: Per Instructions section Bathing: No limitations Sexual Activity: Wait until after follow-up appointment Exercise/Sports: Wait until after follow-up appointment Exercise Comment: Do not let heart rate get above 100 beats per minute Driving/Machine Use: No limitations Non-emergency contact: Primary Care Provider and Corporate Development Manager Call non-emergency contact if: you have any medication questions, your symptoms worsen, your pain is not controlled, your pain is worsening, your pain is unusual for you and your pain is concerning for you Follow-up/Referrals: Scar Gomran MD [Physician] - 03/19/21 1:30 pm (Please follow up within 3-4 weeks) [facility] [Primary Care Provider] - 03/12/21 2:40 pm () Diet: Regular Addtl Attending Provider Instructions: You were admitted for inflammation of the lining of the heart into the muscle of the heart-this is called myopericarditis. This was likely caused by a viral infection that you had 2 weeks prior to admission. It is very important that you not overexert yourself-do not let your heart rate go above 100. If you can get rides to classes so that you do not have to walk more than a light pace, that would be great. 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 You should not be exercising at all. You will be taking several medications for your heart. Please take aspirin 325 mg 3 times a day for the next 3 days and then decrease to twice a day for 3 days and then once a day for 1 day and then stop. If you have a return of pain as you taper down on the dose, you should restart the aspirin. You also be taking colchicine 0.6 mg by mouth twice a day for at least the next month until you see the accounts receivable manager. This medication can cause diarrhea. If the diarrhea is severe (greater than 5 times a day), you can take an antidiarrheal medication such as Imodium and let your accounts receivable manager know. You should take the omeprazole that you have at home once daily every day in the morning for the next 2 weeks. You will also be taking metoprolol 12.5 mg by mouth twice a day to keep your heart rate down and help protect you from abnormal heart rhythms and extra beats. You should avoid alcohol use at this time. It is very important also that you quit using e-cigarettes. Please follow-up with accounts receivable manager in 3 to 4 weeks. Pending Studies at Discharge: No Stand-Alone Forms: My [facility], Work/School Release, Smoking Cessation Medications and DC Order Prescriptions: New metoprolol tartrate 25 mg Tablet 12.5 mg PO BID Qty: 30 RF: 0 aspirin [Ecotrin] 325 mg Tablet,Delayed Release (Dr/Ec) 325 mg PO TID Qty: 14 RF: 0 colchicine [Colcrys] 0.6 mg Tablet 0.6 mg PO BID Qty: 60 RF: 0 Discharge Orders: Discharge Order (Routine); Ordered 02/26/21 Ordered By: Adali Donaldson Admission Data Admit Date/Time: 02/25/21 10:14 Attending Provider: Adali Donaldson Admit Provider: Adali Donaldson Primary Care Provider: [facility] Other Providers: Scar Gorman Other Interventions: Discharge Summary Assessment (RN) Last Done: 02/26/21 14:12 Coding Level of Care Code D/C DAY MANAGEMENT >30 MINS Diagnoses Myocarditis I40.9 Chronicity: acute Myocarditis type: unspecified Abnormal EKG R94.31 GERD (gastroesophageal reflux disease) K21.9 Elevated troponin R77.8 Elevated CK R74.8 Transaminitis R74.01 Leukocytosis D72.829
== END 2021-02-26 14:56 | disposition home or self-care (01) | DRG 315 ==
LOC: ED 07:37 → EDINP 10:14
DX: M62.82 Rhabdomyolysis; I49.3 Ventricular premature depolarization; B34.9 Viral infection, unspecified; F17.210 Nicotine dependence, cigarettes, uncomplicated; I30.9 Acute pericarditis, unspecified; K21.9 Gastro-esophageal reflux disease without esophagitis; D72.829 Elevated white blood cell count, unspecified; Z82.49 Family history of ischemic heart disease and other diseases of the circulatory system